=== PATIENT | male | born 1970 | race African-American/Black ===

== ENCOUNTER 2018-07-15 13:11 | Emergency (ER) | payer MEDICAID ==
[~2018-07-15] VITALS: Ht 188 cm; Wt 120.0 kg
[2018-07-15] MEDS ORDERED: ONDANSETRON HCL 4MG/2ML INJ IV STA (13:49)
[2018-07-15] MEDS ORDERED: FAMOTIDINE 20MG TABLET PO SCH (14:00)
[2018-07-15] MEDS ORDERED: MAGNESIUM/ALUMINUM HYDROXIDE/SIMETHICONE 30ML UDC PO ONE (14:00)
[2018-07-15 14:37] LABS: BASOPHILS % 0.8 % (0.0-2.0); EOSINOPHILS % 0.9 % (0.0-5.0); HEMATOCRIT. 43.9 % (42.0-52.0); MEAN CORPUSCULAR HEMOGLOBIN 24.4 pg (28.0-32.0); MEAN CORPUSCULAR VOLUME 76.3 fL (80.0-94.0); MEAN PLATELET VOLUME 7.8 fl (7.4-10.4); MONOCYTES % 8.6 % (2.0-8.0); NEUTROPHILS % 51.7 % (40.0-76.0); PLATELET 296 x1000/uL (130-400); RED BLOOD CELL COUNT 5.75 mill/uL (4.7-6.1)
[2018-07-15 14:41] LABS: CHLORIDE 107 mEq/L (98-107)
[2018-07-15 15:27] VITALS: BP 135/72
== END 2018-07-15 15:28 | disposition home or self-care (01) ==
LOC: ER 13:11
DX: T54.3X1A Toxic effect of corrosive alkalis and alkali-like substances, accidental (unintentional), initial encounter (principal); X58.XXXA Exposure to other specified factors, initial encounter; Y93.89 Activity, other specified; Y92.89 Other specified places as the place of occurrence of the external cause; Y99.8 Other external cause status
CPT/HCPCS: 36415; 80053; 85025; 96374; 99283; J2405